=== PATIENT | female | born 1970 | race Caucasian/White ===

== ENCOUNTER 2016-10-25 18:49 | Emergency (ER) | payer BC ==
[2016-10-25] MEDS ORDERED: ALBUTEROL SULFATE 2.5 MG/0.5 ML VIAL.NEB IH ONE (18:51)
[2016-10-25] MEDS ORDERED: METHYLPREDNISOLONE SOD SUCC/PF 40 MG/ML VIAL IV ONE (18:54)
--- OUTSIDE RECORDS SUMMARY | 2016-10-25 18:56 | XMS REPORT | Continuity of Care Document ---
:1970 Author Organization [facility] ([facility]) Address [address] [place] [address] Phone [phone] Care Team Providers Name Role Phone Terrell Thomas Primary Care Provider [phone] Source Comments This disclosure is being made pursuant to the Care Everywhere program, applicable federal and state laws, and may not contain all informaitonavailable regarding this patient.[facility] ([facility]) Active Allergies and Adverse Reactions No Known Allergies Current Medications Prescription Sig. Disp. Refills Start Date End Date Status IBUPROFEN (MOTRIN PO) Take by mouth as Active needed. bimatoprost (LATISSE) instill 1 Drop onto 3 mL 11 08/28/2012 Active 0.03 % eyelash the right eye every solution evening. Indications: HYPOTRICHOSIS OF EYELID EYELASHES norethindrone Take 1 Tab by mouth Active (NOR-Q.D.) 0.35 mg daily. tablet hydroquinone 4 % cream apply topically 30 g 2 12/12/2012 Active daily. Indications: DYSCHROMIA Active Problems Problem Noted Date Hyperpigmentation of skin 12/12/2012 Hypertrophic scar 08/28/2012 Facial abrasion 08/19/2012 Social History Tobacco Use Types Packs/Day Years Used Date Current Some Day Smoker Smokeless Tobacco: Never Used Alcohol Use Drinks/Week oz/Week Comments Yes occasional Last Filed Vital Signs Vital Sign Reading Time Taken Blood Pressure 125/85 12/12/2012 1:03 PM CDT Pulse 66 12/12/2012 1:03 PM CDT Temperature 36.9 C (98.4 F) 12/12/2012 1:03 PM CDT Respiratory Rate 18 08/19/2012 4:20 PM CDT Height 1.626 m (5' 4") 08/28/2012 3:35 PM CDT Weight 80.287 kg (177 lb) 12/12/2012 1:03 PM CDT Body Mass Index 30.37 12/12/2012 1:03 PM CDT Oxygen Saturation 100% 08/19/2012 4:20 PM CDT Plan of Care Health Maintenance Due Date Last Done Comments Hepatitis B Vaccine (1 of 3 - Primary Series) 1970 Tdap Vaccine 01/24/1979 Lipid Disorder Screening 01/24/1986 MMR Vaccine 01/24/1986 Td Vaccine 01/24/1986 Pneumococcal Vaccine (1 of 1 - PPSV23) 01/24/1987 Cervical Cancer Screening 01/24/1998 Mammogram 2008 Influenza Vaccine: Seasonal (#1) 01/04/2016 Results from Last 3 Months Not on file
[2016-10-25] MEDS ORDERED: ALBUTEROL SULFATE 2.5 MG/3 ML VIAL.NEB IH ONE (18:57)
[2016-10-25] MEDS ORDERED: METHYLPREDNISOLONE SOD SUCC/PF 40 MG/ML VIAL ONE (18:59)
--- NOTE | 2016-10-25 19:09 | ERNOTE ---
Date of Service: 10/25/16 Time Seen by Provider: 10/25/16 18:51 Stated Complaint: ASTHMA ATTACK Presenting Symptoms:: other - dyspnea Source: patient Exam Limitations: no limitations Immunizations: IMMUNIZATION HX Immunizations Up to Date Yes History of Influenza Vaccine No Hx Pneumococcal Vaccination No Allergies/Adverse Reactions: Allergies No Known Allergies Allergy (Unverified 08/17/12 23:39) Home Medications: HOME MEDICATIONS FLUoxetine HCL [Prozac] 10 mg PO DAILY 10/25/16 [Last Taken Unknown] Loratadine [Claritin] 10 mg PO DAILY #30 tab 10/25/16 [Last Taken Unknown] predniSONE [Prednisone] 3 tab PO DAILY #9 tab 10/25/16 [Last Taken Unknown] - History of Present Ilness Narrative: Pt. comes in with c/o dyspnea after she was working in the yard this afternoon. Pt. states that she used her albuterol inhaler without relief. Pt. denies any SOB, CP, NVD fevers, or recent illness. pt. states that her ENT wanted her to start another medication to control her allergies but she refused. Review of Systems - Review of Systems Constitutional: Present: no symptoms reported. Absent: recent illness, fever, chills, weakness, fatigue, malaise EYE: Present: no symptoms reported ENT: Present: no symptoms reported Respiratory: Present: shortness of breath, wheezing. Absent: cough, orthopnea Cardiology: Present: no symptoms reported. Absent: chest pain, palpitations, edema Gastrointestinal/Abdominal: Present: no symptoms reported. Absent: nausea, vomiting, diarrhea Genitourinary: Present: no symptoms reported Musculoskeletal: Present: no symptoms reported. Absent: back pain, joint pain Skin: Present: no symptoms reported. Absent: rash, change in color Neurological: Present: no symptoms reported. Absent: headache, dizziness/light- headedness, weakness, numbness All Other Systems: All systems neg except as marked - Patient's Past Medical History Patient History - Medical: No pertinent hx, Anxiety Patient History - Cardiac/Respiratory: Asthma Patient History - Cancer: No Hx of Cancer Patient History - Surgical Procedures: No surgical history Patient History - Other: None - Social History Living Situations: home Abuse History: No History of abuse Psych History: Hx of Anxiety, Current tx/ever been on anti-depressants or anti- anxiety meds Smoking Status: Never smoker Have you smoked in the past 12 months: No Do you dip or chew tobacco: No Alcohol Use: rarely Drug Use: none - Immunizations Immunizations Up to Date: Yes Hx Pneumococcal Vaccination: No History of Influenza Vaccine: No Physical Exam - Physical Exam General Appearance: Present: wd/wn, alert, no apparent distress Eye Exam: Normal inspection: bilateral, PERRL: bilateral, EOMI: bilateral Ears, Nose, Throat: Present: normal ENT inspection, normal pharynx Neck: Present: normal inspection, nontender. Absent: lymphadenopathy (R), lymphadenopathy (L) Respiratory: Present: no respiratory distress, chest nontender, decreased breath sounds, wheezing - insp and exp throughout Cardiovascular/Chest: Present: regular rate, rhythm, no murmur, normal peripheral pulses Gastrointestinal/Abdominal: Present: normal bowel sounds, nontender, nondistended, soft, no organomegaly Back Exam: Present: normal inspection, normal range of motion, no CVA tenderness , no vertebral tenderness Extremity Exam: Present: normal inspection, non-tender, normal range of motion, no edema Neurological Exam: Present: alert, oriented, normal mood/affect, no motor/ sensory deficits, 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 Absent: pallor, skin rash ED Progress - Results and Orders Patient's Lab Results:: I have reviewed the patient's lab results. - Vital Signs Patient's Vital Signs:: I have reviewed the patient's vital signs. Vital Signs: Vital Signs 10/25/16 18:54 Temperature 37.3 C Pulse Rate 68 Respiratory 20 Rate O2 Sat by Pulse 95 Oximetry - X-Ray X-Ray #1 X-Ray: chest Interpretation: Reviewed by me X-ray Comments: no acute consolidation or infiltrate - Progress/Reassessment Chief Complaint: Asthma Progress:: Improved Departure - Departure Clinical Impression: Asthma exacerbation Disposition: Home self-care Condition: Good Instructions: Bronchospasm, Adult, Asthma, Adult, [id number] Additional Instructions: Please take inhaler every 4 hours as needed continue Claritin daily even after feeling better. Prescriptions: Loratadine [Claritin] 10 mg PO DAILY #30 tab predniSONE [Prednisone] 3 tab PO DAILY #9 tab
[2016-10-25 19:49] LABS: Hematocrit 40.5 % (37.0-47.0); Hemoglobin 13.2 gm/dL (12.5-16.0); Mean Cell Volume 80.2 fl (78-100); Mean Corpuscular Hemoglobin 26.1 pg (27-31); Mean Corpuscular Hgb Conc 32.6 g/dl (32-36); Mean Platelet Volume 10.4 fl (6.0-9.5); Neutrophil # 4.6 K/mm3 (1.3-6.0); Neutrophil % 49.1 % (42-75.0); Platelet Count 262 K/mm3 (150-450); Red Blood Count 5.05 M/mm3 (4.2-5.4); Red Cell Distribution Width 13.6 % (11.5-14.0); White Blood Count 9.4 K/mm3 (4.0-10.5)
[2016-10-25 20:25] VITALS: BP 130/82
== END 2016-10-25 20:24 | disposition home or self-care (01) ==
LOC: ER 18:49
DX: J45.901 Unspecified asthma with (acute) exacerbation (principal); F41.9 Anxiety disorder, unspecified